=== PATIENT | male | born 1965 | race Caucasian/White ===

== ENCOUNTER → 2024-11-24 | Day surgery (SDC) | payer MEDICAID ==
[~2024-11-24] VITALS: Ht 167.6 cm; Wt 88.9 kg
[~2024-11-24] MED LIST: ALBU18HF2 IH; ATOR20TA PO; MITOMYCIN 0.2 MG KIT OP NR; OMEP20TA15 PO; ONDANSETRON HCL 4MG/2ML INJ IV PRN; PROPOFOL 200MG/20ML VIAL IV ONE; TAMS-54 PO; TRIAMCINOLONE ACETONIDE 40MG/ML 1ML VIAL ONE
[2024-11-24 08:15] LABS: BASOPHILS % 1.0 % (0.0-2.0); EOSINOPHILS % 3.8 % (0.0-5.0); HEMATOCRIT. 41.6 % (42.0-52.0); HEMOGLOBIN. 13.9 g/dL (14.0-18.0); LYMPHOCYTES % 39.5 % (20.0-50.0); MEAN PLATELET VOLUME 8.3 fl (7.4-10.4); MONOCYTES % 8.1 % (2.0-8.0); NEUTROPHILS % 47.6 % (40.0-76.0); PLATELET 196 x1000/uL (130-400); RED BLOOD CELL COUNT 4.54 mill/uL (4.7-6.1); RED CELL DISTRIBUTION WIDTH 13.2 % (11.6-14.6)
[2024-11-24 08:32] LABS: CREATININE 1.0 mg/dL (0.6-1.3); UREA NITROGEN BLOOD 12 mg/dL (9-23)
[2024-11-24] MEDS: LACTATED RINGERS 1,000 ML IV SCH (08:50)
== END | disposition home or self-care (01) ==
LOC: OR 07:23
PROVIDERS: ATTEND Ophthalmology
DX: H11.002 Unspecified pterygium of left eye (principal); I10 Essential (primary) hypertension; N40.0 Benign prostatic hyperplasia without lower urinary tract symptoms; E78.5 Hyperlipidemia, unspecified; K21.9 Gastro-esophageal reflux disease without esophagitis; J45.909 Unspecified asthma, uncomplicated; Z98.890 Other specified postprocedural states; Z79.899 Other long term (current) drug therapy
CPT/HCPCS: 65426; 93005; 80048; 85025; 36415; J2704; J3301